=== PATIENT | female | born 1985 | race Caucasian/White ===

== ENCOUNTER → 2023-04-18 13:11 | Outpatient (CLI) | payer OTHER, SELFPAY ==
--- NOTE | 2023-04-18 14:12 | DI.MRI.S_ITS ---
BREAST MRI OF BOTH BREASTS: 04/18/2023 CLINICAL: High risk screening. PROCEDURE: MR BREAST BI WO/W CON INDICATIONS: HIGH RISK FOR BREAST CANCER TECHNIQUE: The patient was placed prone in a dedicated breast imaging coil. Precontrast axial STIR and 3D FLASH without fat saturation sequences were obtained. Both before and after bolus injection of contrast, sequential 1-minute axial 3D FLASH with fat saturation sequences for 3 time points, with subtraction images and maximum intensity projections (MIP's) generated. Delayed sagittal FLASH images with fat saturation were also obtained. Computer-aided detection, including computer algorithm analysis of MRI image data for lesion detection and characterization, pharmacokinetic analysis, with further physician review for interpretation, was performed. COMPARISON: [facility], , MM SCREENING MAMMO BI, 03/09/2023, 15:09. FINDINGS: Image quality: Excellent. There is marked background parenchymal enhancement. Right breast: 11:00 o'clock posterior depth circumscribed mass measuring 0.9 x 0.9 x 0.6 cm, (11/123 and 17/36). Several small T2 hyperintense cysts. Left breast: 10:00 o'clock posterior depth circumscribed mass measuring 1.1 x 1.1 x 0.8 cm, (11/90 and 18/52). Several small T2 hyperintense cysts. Miscellaneous: No enlarged lymph nodes. IMPRESSION: INCOMPLETE: NEEDS ADDITIONAL IMAGING EVALUATION 1. Right breast: 11:00 o'clock posterior depth mass measuring 0.9 cm. This could represent a fibroadenoma. Recommend further evaluation with targeted ultrasound. 2. Left breast: 10:00 o'clock posterior depth mass measuring 1.1 cm. This could represent a fibroadenoma. Recommend further evaluation a targeted ultrasound. 3. Lymph nodes: No enlarged lymph nodes. BIRADS 0. Recommend second-look with targeted ultrasounds. COMMENT: The imaging literature indicates that a negative contrast breast MRI examination has a high sensitivity and a moderate specificity for detecting and excluding invasive carcinomas to a detection threshold of 3-5 mm; nonetheless, appropriate clinical and mammographic follow-up are recommended. MRI is not sensitive for detecting DCIS (ductal carcinoma in situ) and may not detect large invasive neoplasms that show only minimal enhancement such as mucinous carcinoma. If there are suspicious calcifications or clinically worrisome palpable masses, then biopsy should still be considered. Invasive neoplasms can be hidden by co-existent and benign enhancement caused by mastitis, hormone therapy effects, radiation therapy, , and recent biopsy or surgery. False positive examinations can occur in a number of circumstances, including breasts that have recently been subject to invasive procedures and those that contain atypical ductal hyperplasia, hormonally stimulated glandular tissue, fat necrosis, or radial scars. Dictated by: Josh Mcclain M.D. on 04/20/2023 at 16:36 This exam was interpreted at Station ID: [id number]. Electronically Signed By: Josh Mcclain M.D. slc/:04/20/2023 16:55:22 letter sent: Additional Imaging Needed ACR BI-RADS Category 0: Incomplete [id number]
== END ==
LOC: MRI 13:12
PROVIDERS: Referring Provider Registered Nurse; Visit Provider Registered Nurse
DX: N63.11 Unspecified lump in the right breast, upper outer quadrant (principal); Z12.39 Encounter for other screening for malignant neoplasm of breast; N63.22 Unspecified lump in the left breast, upper inner quadrant; N60.01 Solitary cyst of right breast; N60.02 Solitary cyst of left breast; Z91.89 Other specified personal risk factors, not elsewhere classified
CPT/HCPCS: 77049; A9579